=== PATIENT | female | born 2000 | race Caucasian/White ===

== ENCOUNTER → 2020-02-04 | Outpatient (CLI) | payer MEDICAID, SELFPAY ==
[2020-02-09 16:11] LABS: HPV Reflexed? NOT INDICATED
== END | disposition home or self-care (01) ==
LOC: LABSPEC 16:24
PROVIDERS: Visit Provider Student in an Organized Health Care Education/Training Program
DX: Z12.4 Encounter for screening for malignant neoplasm of cervix (principal)
CPT/HCPCS: 88175; G0145

== ENCOUNTER → 2022-06-12 | Outpatient (CLI) | payer MEDICAID, SELFPAY ==
[2022-06-12 17:29] LABS: Progesterone Level 0.41 ng/mL (See Comment)
[2022-06-12 17:48] LABS: Estradiol 51.2 pg/mL; Luteinizing Hormone 18.5 mIU/mL; Prolactin 8.1 ng/mL; T4 Free Direct 1.12 ng/dL (0.76-1.46)
== END | disposition home or self-care (01) ==
LOC: WOBLAB 15:18
PROVIDERS: Visit Provider Student in an Organized Health Care Education/Training Program
DX: N92.6 Irregular menstruation, unspecified (principal)
CPT/HCPCS: 36415; 82670; 83001; 83002; 84144; 84146; 84439; 84443

== ENCOUNTER → 2022-06-27 | Outpatient (CLI) | payer MEDICAID, SELFPAY ==
[2022-06-27 15:25] LABS: LDH 222 U/L (84-246)
[2022-06-29 21:20] LABS: AFP, Tumor Marker < 1.8 ng/mL (0.0-4.7); Cancer Antigen 125 29.2 U/mL (0.0-38.1); Carbohydrate AG 19-9 < 2 U/mL (0-35); Carcinoembryonic Antigen 2139 1.9 ng/mL (0.0-4.7)
== END | disposition home or self-care (01) ==
PROVIDERS: Visit Provider Student in an Organized Health Care Education/Training Program
DX: N83.201 Unspecified ovarian cyst, right side (principal)
CPT/HCPCS: 36415; 82105; 82378; 83615; 86301; 86304